=== PATIENT | male | born 1935 | race Caucasian/White ===

== ENCOUNTER → 2016-08-10 | Outpatient (CLI) | payer MEDICARE ==
--- NOTE | 2016-08-11 17:18 | PCVCIMAG ---
EXAM: BILATERAL CAROTID DUPLEX INDICATION: Carotid Occlusive Disease. FINDINGS: Doppler Measurements (centimeters per second): RIGHT: Peak CCA-89, Peak ECA-107, Diastolic ICA-35, Peak ICA-128, ICA/CCA Ratio-1.4. LEFT: Peak CCA-92, Peak ECA-100, Diastolic ICA-14, Peak ICA-81, ICA/CCA Ratio-0.9. RIGHT CAROTID: The carotid bulb has moderate plaque. The proximal internal carotid artery shows 40-50% stenosis. The common carotid artery shows no significant stenosis. The external carotid artery shows no significant stenosis. LEFT CAROTID: The carotid bulb has mild plaque. The proximal internal carotid artery shows <40% stenosis. The common carotid artery shows no significant stenosis. The external carotid artery shows no significant stenosis. Antegrade flow in both vertebral arteries. IMPRESSION: 40-50% stenosis of the right internal carotid artery with moderate plaque. <40% stenosis of the left internal carotid artery with mild plaque. LOC:[place] [id number]
== END | disposition home or self-care (01) ==
LOC: PCVCIMAG 10:02
PROVIDERS: ATTEND Internal Medicine Cardiovascular Disease
DX: I10 Essential (primary) hypertension (principal); E78.00 Pure hypercholesterolemia, unspecified; I65.23 Occlusion and stenosis of bilateral carotid arteries
CPT/HCPCS: 93880

== ENCOUNTER → 2017-12-14 | Outpatient (CLI) | payer MEDICARE ==
[~2017-12-14] MED LIST: REGADENOSON 0.4 MG/5 ML DISP.SYRIN. IV ONE
--- NOTE | 2017-12-14 12:12 | PCVCIMAG ---
EXAM: BILATERAL CAROTID DUPLEX INDICATION: Carotid Occlusive Disease. FINDINGS: Doppler Measurements (centimeters per second): RIGHT: Peak CCA-69, Peak ECA-127, Diastolic ICA-49, Peak ICA-162, ICA/CCA Ratio-2.4. LEFT: Peak CCA-88, Peak ECA-113, Diastolic ICA-24, Peak ICA-63, ICA/CCA Ratio-0.7. RIGHT CAROTID: The carotid bulb has moderate plaque. The proximal internal carotid artery shows 60% stenosis. The common carotid artery shows no significant stenosis. The external carotid artery shows 40% stenosis. LEFT CAROTID: The carotid bulb has mild plaque. The proximal internal carotid artery shows <40% stenosis. The common carotid artery shows no significant stenosis. The external carotid artery shows no significant stenosis. Antegrade flow in both vertebral arteries. IMPRESSION: 60% stenosis of the right internal carotid artery with moderate plaque has increased in severity since August 2016 study. <40% stenosis of the left internal carotid artery with mild plaque. LOC:[id number]
--- NOTE | 2017-12-14 14:33 | PCVCIMAG ---
APPROVED REPORT Study performed: 12/14/2017 11:36:36 EXAM: Comprehensive 2D, Doppler, and color-flow Echocardiogram Patient Location: Echo lab Room #: 2Status: routine BSA: 1.91 HR: 61 bpmBP: 120/54 mmHg Other Information Study Quality: Good Risk Factors: Cardiac Risk Factors: Hyperlipidemia Indications Pacemaker CAD Cardiomyopathy BiV pacemaker 2D Dimensions IVSd: 9.16 (7-11mm)LVOT Diam: 22.32 (18-24mm) LVDd: 60.58 mm PWd: 9.70 (7-11mm)Ascending Ao: 32.60 (22-36mm) LVDs: 47.15 (25-40mm) Left Atrium: 42.20 (27-40mm) Aortic Root: 27.48 mm LV Single Plane 4CH: 37.42 % LV Single Plane 2CH: 38.14 % Biplane EF: 38.6 % Volumes Left Atrial Volume (Systole) Single Plane 4CH: 86.56 mLSingle Plane 2CH: 89.69 mL Biplane LA Volume: 88.00 mLLA ESV Index: 46.00 mL/m2 Aortic Valve AoV Peak Santhosh.: 1.57 m/s AO Peak Gr.: 9.84 mmHgLVOT Max P.93 mmHg LVOT Max V: 0.86 m/s MEENU Vmax: 2.13 cm2 Mitral Valve E/A Ratio: 0.5 MV Decel. Time: 224.53 ms MV E Max Santhosh.: 0.45 m/s MV A Santhosh.: 0.99 m/s IVRT: 190.31 ms TDI E/Lateral E': 11.25E/Medial E': 15.00 Medial E' Santhosh.: 0.03 m/s Lateral E' Santhosh.: 0.04 m/s Pulmonary Valve PV Peak Santhosh.: 0.90 m/sPV Peak Gr.: 3.21 mmHg Pulmonary Vein P Vein S: 0.66 m/sP Vein A: 0.37 m/s P Vein D: 0.28 m/sP Vein A Dur.: 155.7 msec P Vein S/D Ratio: 2.36 Tricuspid Valve TR Peak Santhosh.: 2.16 m/s TR Peak Gr.: 18.58 mmHg TV Vmax: 0.42 m/sPA Pressure: 26.00 mmHg Left Ventricle The left ventricle is normal size. Mild dilitation of the apex. There is global moderate hypokinesis of the left ventricle.Mid-distal anterior wall appears to have worse function. There is normal left ventricular wall thickness. Left ventricular systolic function is moderately decreased. LVEF is 35-40%. Grade I - abnormal relaxation pattern. Right Ventricle The right ventricle is normal size. The right ventricular systolic function is normal. Atria Left atrium is moderately dilated. The right atrium size is normal. Aortic Valve Aortic valve is trileaflet. The Aortic valve is mildly sclerotic. No aortic regurgitation is present. There is no aortic valvular stenosis. Mitral Valve The mitral valve is normal in structure. There is no mitral valve regurgitation noted. No evidence of mitral valve stenosis. Tricuspid Valve The tricuspid valve is normal in structure. Trace to mild tricuspid regurgitation with a PA pressure of 26 mmHg. Pulmonic Valve The pulmonary valve is normal in structure. Trace to mild pulmonic regurgitation. Great Vessels The aortic root is normal in size. The ascending aorta is normal in size. IVC is not well visualized. Pericardium There is no pericardial effusion. There is no pleural effusion. <Conclusion> The left ventricle is normal size. Mild dilitation of the apex. There is global moderate hypokinesis of the left ventricle.Mid-distal anterior wall appears to have worse function. Left ventricular systolic function is moderately decreased. LVEF is 35-40%. Grade I - abnormal relaxation pattern. The right ventricle is normal size. Left atrium is moderately dilated. Aortic valve is trileaflet. The Aortic valve is mildly sclerotic. There is no aortic valvular stenosis. There is no mitral valve regurgitation noted. Trace to mild tricuspid regurgitation with a PA pressure of 26 mmHg. The aortic root is normal in size. There is no pericardial effusion.
--- NOTE | 2017-12-15 14:52 | PCVCIMAG ---
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 Time of rest injection: 1230 Date: 12/14/2017 Administration Route: IV Administration Site: Right Hand Pharmacologic Stress Pharmacologic stress test was performed by injecting Regadenoson 0.4 mg IV push over 10-15 seconds immediately followed by the intravenous injection of 34.3 mCi of Tc-99m Sestamibi. Time of stress injection: 1345 Date: 12/14/2017 Administration Route: IV Administration Site: Right Hand Gated Stress SPECT was performed 45 minutes after stress injection. The images were gated to evaluate regional wall motion and calculate left ventricular ejection fraction. Stress Test Details Stress Test: Pharmacologic stress testing performed using 0.4 mg of regadenoson per 5 mL given IV over 10 seconds. Reason for pharmacologic stress test: physical limitation, back pain & gait disturbances. HRMax Heart Rate (APMHR): 136 bpm Resting HR: 60 bpmTarget HR (85% APMHR): 115 bpm Max HR Achieved: 93 bpm % of APMHR: 68 Recovery HR: 75 bpm BP Resting BP: 157/69 mmHg Recovery BP: 124/59 mmHg ECG Resting ECG: AV paced rhythm, RBBB Stress ECG: AV paced rhythm, RBBB Arrhythmia: VPC's Recovery ECG: AV paced rhythm, RBBB Clinical Reason for Termination: Completed protocol Stress Symptoms: Lightheaded Exercise duration: 0 min 55 sec Symptoms resolved during recovery. Stress ECG Conclusion non diagnostic paced Study Quality Study: Good Study Data Post stress, the left ventricular ejection was 45%.. SSS: 15 SRS: 12 SDS: 3 TID = 1.01. 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 Post stress, the left ventricular ejection was 45%. No prior study available for comparison. Interpreted by: Meng Rayo MD Electronically Approved: 12/14/2017 22:03:59 <Conclusion> non diagnostic paced
== END | disposition home or self-care (01) ==
LOC: PCVCIMAG 10:08
PROVIDERS: ATTEND Internal Medicine Cardiovascular Disease
DX: I65.23 Occlusion and stenosis of bilateral carotid arteries (principal); I45.9 Conduction disorder, unspecified; I25.10 Atherosclerotic heart disease of native coronary artery without angina pectoris
CPT/HCPCS: 78452; 93017; 93306; 93880; A9500; J2785

== ENCOUNTER → 2018-08-07 | Outpatient (CLI) | payer MEDICARE | END | disposition home or self-care (01) | LOC: PCVCCLINIC 13:00 | PROVIDERS: ATTEND Internal Medicine Cardiovascular Disease | DX: I42.9 Cardiomyopathy, unspecified (principal); I44.2 Atrioventricular block, complete; I25.10 Atherosclerotic heart disease of native coronary artery without angina pectoris; I10 Essential (primary) hypertension; E78.2 Mixed hyperlipidemia; Z95.810 Presence of automatic (implantable) cardiac defibrillator; Z79.82 Long term (current) use of aspirin; Z79.899 Other long term (current) drug therapy | CPT/HCPCS: 36415; 80061; 93284; G0463 ==